=== PATIENT | female | born 1970 | race Caucasian/White ===

== ENCOUNTER 2016-07-27 09:43 | Emergency (ER) | payer OTHER | END 2016-07-27 10:09 | disposition home or self-care (01) | LOC: FER 09:43 | DX: H16.011 Central corneal ulcer, right eye (principal); I10 Essential (primary) hypertension; F17.210 Nicotine dependence, cigarettes, uncomplicated; Z79.899 Other long term (current) drug therapy | CPT/HCPCS: 99283 ==

== ENCOUNTER 2021-07-23 05:38 | Emergency (ER) | payer OTHER ==
[~2021-07-23] VITALS: Ht 152.4 cm; Wt 68.0 kg
[~2021-07-23 05:38] MED LIST: BACTRIM DS TAB1 EACH PO; FLEXERIL10 MG PO; VOLTAREN **OUT75 MG PO
[2021-07-23] MEDS ORDERED: PERMETHRIN CREA60 GM TOP (06:59)
[2021-07-23] MEDS ORDERED: ENDOCET 10-3251 EACH PO (17:11)
[2021-07-23] MEDS ORDERED: ROBAXIN750 MG PO (17:11)
[2021-07-23] MEDS ORDERED: NAPROXEN500 MG PO (17:11)
== END 2021-07-23 17:48 | disposition home or self-care (01) ==
LOC: FER 05:38
DX: S32.019A Unspecified fracture of first lumbar vertebra, initial encounter for closed fracture (principal); S01.01XA Laceration without foreign body of scalp, initial encounter; B86 Scabies; I10 Essential (primary) hypertension; Z23 Encounter for immunization; W11.XXXA Fall on and from ladder, initial encounter; Y92.009 Unspecified place in unspecified non-institutional (private) residence as the place of occurrence of the external cause
CPT/HCPCS: 70450; 72125; 72128; 72131; 72148; 90471; 90715; 96374; 96375; 96376; J1170; J2405